=== PATIENT | female | born 1960 | race Hispanic/Latino ===

== ENCOUNTER → 2017-11-19 | Outpatient (CLI) | payer BC ==
[~2017-11-19] MED LIST: ATORVASTATIN CA10 MG PO
--- NOTE | 2017-11-19 15:17 | Diagnostic Imaging Report ---
PROCEDURE:ABDOMINAL ULTRASOUND COMPARISON:None. INDICATIONS: ABDOMEN PAIN TECHNIQUE: Transverse and longitudinal images of the upper abdomen were obtained. FINDINGS: Liver: Size: 11.6 cm in the right midclavicular line, normal Appearance: Normal echogenicity, smooth contour Mass: 2.0 x 1.5 x 2.0 cm anechoic cyst in the right hepatic lobe. Spleen: Size: 7.5 cm in length, normal Echogenicity: Normal Mass: No focal masses Gallbladder: Surgically absent. Bile Ducts: Intrahepatic Ducts: No dilatation Extrahepatic Ducts: Common bile duct measures 0.5 cm, no dilatation Pancreas: Visualized portions of the neck and proximal body are normal. Right Kidney: Size: 9.2 x 3.2 x 3.7 cm Echogenicity: Normal Collecting System: No hydronephrosis Stone: None Cyst/Mass: 1.4 x 1.2 x 1.4 cm anechoic simple cyst with a partial-thickness septation. Left Kidney: Size: 10.7 x 4.6 x 4.3 cm Echogenicity: Normal Collecting System: No hydronephrosis Stone: None Cyst/Mass: None Vessels: Aorta: Visualized portions are normal Inferior Vena Cava: Visualized portions and normal Main Portal Vein: 0.8 cm, normal size with hepatopedal flow. Free Fluid: No ascites or pleural effusions IMPRESSION: 1. Unremarkable abdominal ultrasound. 2. 1.4 cm Bosniak 2 right renal cyst. Dictated by: Sancho Marsh M.D. on 11/19/2017 at 15:16 Electronically approved by: Sancho Marsh M.D. on 11/19/2017 at 15:16
== END ==
LOC: US 14:02
PROVIDERS: ATTEND Internal Medicine Gastroenterology
DX: R10.9 Unspecified abdominal pain (principal)
CPT/HCPCS: 76700